=== PATIENT | female | born 1940 | race Caucasian/White ===

== ENCOUNTER → 2018-06-08 10:13 | Outpatient (CLI) | payer OTHER, SELFPAY ==
[2018-06-08 10:44] LABS: Hemoglobin A1C% w Est Avg Glu 8.1 % (4.0-6.0)
[2018-06-08 10:59] LABS: Add Manual Diff / Slide Review NO; Basophils Percent Auto 0.9 % (0-2); Eosinophils Percent Auto 1.5 % (2-4); Hematocrit 36.6 % (36-46); Hemoglobin 12.4 g/dL (12.0-16.0); Lymphocytes Percent Auto 41.6 % (25-40); Mean Corpuscular Hemoglobin 29.4 PG (26-34); Mean Corpuscular Volume 86.4 fL (80-100); Monocytes Percent Auto 7.3 % (3-14); Neutrophils Absolute Auto 4000 /uL (3000-5900); Neutrophils Percent Auto 48.7 % (50-75); Platelet Count 325 X10^3/uL (150-400); Red Blood Cell Count 4.23 X10^6/uL (4.0-5.2); Red Cell Distribution Width 13.8 % (11.6-14.8); White Blood Cell Count 8.2 X10^3/uL (4.5-11.0)
[2018-06-08 11:17] LABS: Alanine Aminotransferase 21 IU/L (9-52); Albumin 4.4 g/dL (3.5-5.0); Albumin Globulin Ratio 1.6 (1.0-2.8); Alkaline Phosphatase 43 U/L (38-126); Aspartate Aminotransferase 25 IU/L (14-36); Bilirubin Total 0.9 mg/dL (0.2-1.3); Blood Urea Nitrogen 17 mg/dL (7-17); Calcium 9.9 mg/dL (8.4-10.2); Carbon Dioxide 30 mmol/L (22-32); Chloride 102 mmol/L (98-107); Estimated Glomerular Filt Rate 53.5 mL/min (>60); Globulin 2.8 g/dL (1.7-4.1); Glucose 160 mg/dL (80-110); HEMOLYSIS < 15 (0-50); Potassium 4.5 mmol/L (3.4-5.1); Sodium 142 mmol/L (137-145); Total Protein 7.2 g/dL (6.3-8.2)
== END ==
PROVIDERS: PCP Internal Medicine; Visit Provider Internal Medicine
DX: E11.9 Type 2 diabetes mellitus without complications (principal); D63.8 Anemia in other chronic diseases classified elsewhere
CPT/HCPCS: 36415; 80053; 83036; 85025

== ENCOUNTER → 2018-09-08 08:04 | Outpatient (CLI) | payer OTHER, SELFPAY ==
[2018-09-08 08:43] LABS: Add Manual Diff / Slide Review NO; Eosinophils Percent Auto 1.3 % (2-4); Hematocrit 35.7 % (36-46); Hemoglobin 12.3 g/dL (12.0-16.0); Lymphocytes Percent Auto 56.2 % (25-40); Mean Corpuscular HGB Conc 34.5 % (30-36); Mean Corpuscular Hemoglobin 29.4 PG (26-34); Mean Corpuscular Volume 85.2 fL (80-100); Monocytes Percent Auto 5.9 % (3-14); Neutrophils Absolute Auto 2900 /uL (3000-5900); Neutrophils Percent Auto 35.6 % (50-75); Platelet Count 354 X10^3/uL (150-400); Red Blood Cell Count 4.19 X10^6/uL (4.0-5.2); Red Cell Distribution Width 13.8 % (11.6-14.8); White Blood Cell Count 8.2 X10^3/uL (4.5-11.0)
[2018-09-08 08:53] LABS: BUN Creatinine Ratio 15.7 (6-22); Blood Urea Nitrogen 11 mg/dL (7-17); Calcium 9.5 mg/dL (8.4-10.2); Carbon Dioxide 26 mmol/L (22-32); Chloride 103 mmol/L (98-107); Estimated Glomerular Filt Rate > 60.0 mL/min (>60); Glucose 135 mg/dL (80-110); HEMOLYSIS < 15 (0-50); Potassium 3.2 mmol/L (3.4-5.1); Sodium 144 mmol/L (137-145)
[2018-09-08 09:01] LABS: HEMOLYSIS < 15 (0-50); Iron 61 ug/dL (37-170)
[2018-09-08 09:02] LABS: Hemoglobin A1C% w Est Avg Glu 8.4 % (4.0-6.0)
[2018-09-08 09:13] LABS: Percent Iron Saturation 21 % (15-50); Total Iron Binding Capacity 295 ug/dL (265-497); Transferrin 243 mg/dL (206-381)
== END ==
PROVIDERS: PCP Internal Medicine; Visit Provider Internal Medicine
DX: E11.9 Type 2 diabetes mellitus without complications (principal); D63.8 Anemia in other chronic diseases classified elsewhere
CPT/HCPCS: 36415; 80048; 82728; 83036; 83540; 83550; 85025

== ENCOUNTER → 2018-09-17 09:02 | Outpatient (CLI) | payer OTHER, SELFPAY ==
--- NOTE | 2018-09-17 09:04 | DI.MG.S_ITS ---
BILATERAL DIGITAL SCREENING MAMMOGRAM 3D/2D WITH CAD: 09/17/2018 CLINICAL: Routine screening. Comparison is made to exams dated: 08/03/2016 mammogram, 10/31/2013 mammogram, and 10/18/2012 mammogram - [facility]. There are scattered fibroglandular elements in both breasts. Current study was also evaluated with a Computer Aided Detection (CAD) system. There is a mole marker on both breasts. No significant masses, calcifications, or other findings are seen in either breast. There has been no significant interval change. IMPRESSION: NEGATIVE There is no mammographic evidence of malignancy. A 1 year screening mammogram is recommended. This exam was interpreted at Station ID: [id number]. NOTE: For mammograms, a report in lay terms will be sent to the patient. Approximately 15% of breast malignancies will not be visualized mammographically. In the management of a palpable breast mass, a negative mammogram must not discourage biopsy of a clinically suspicious lesion. Electronically Signed By: Reyes ross/jonas:09/19/2018 17:48:31 letter sent: Normal Exam ACR BI-RADS Category 1: Negative [id number]
== END ==
PROVIDERS: PCP Internal Medicine; Visit Provider Internal Medicine
DX: Z12.31 Encounter for screening mammogram for malignant neoplasm of breast (principal)
CPT/HCPCS: 77063; 77067

== ENCOUNTER → 2019-10-30 07:41 | Outpatient (CLI) | payer MEDICARE, SELFPAY ==
[2019-10-30 08:39] LABS: BUN Creatinine Ratio 13.6 (6-22); Blood Urea Nitrogen 19 mg/dL (7-17); Calcium 10.3 mg/dL (8.4-10.2); Carbon Dioxide 25 mmol/L (22-32); Chloride 105 mmol/L (98-107); Cholesterol 190 mg/dL (140-199); Estimated Glomerular Filt Rate 36.1 mL/min (>60); Glucose 78 mg/dL (80-110); HDL Cholesterol 59 mg/dL (40-60); HEMOLYSIS < 15 (0-50); LDL Cholesterol Calculated 98 mg/dL (<100); Potassium 3.6 mmol/L (3.4-5.1); Sodium 140 mmol/L (137-145); Triglycerides 166 mg/dL (35-150)
== END ==
PROVIDERS: PCP Internal Medicine; Referring Provider Internal Medicine; Visit Provider Internal Medicine
DX: E11.9 Type 2 diabetes mellitus without complications (principal)
CPT/HCPCS: 36415; 80048; 80061

== ENCOUNTER → 2020-02-14 09:00 | Outpatient (CLI) | payer MEDICARE, SELFPAY ==
[2020-02-14 10:22] LABS: Add Manual Diff / Slide Review NO; Basophils Absolute Auto 100 /uL (0-100); Eosinophils Absolute Auto 200 /uL (0-450); Eosinophils Percent Auto 2.8 % (2-4); Hematocrit 33.8 % (36-46); Hemoglobin 11.7 g/dL (12.0-16.0); Lymphocytes Absolute Auto 3300 /uL (1100-4500); Lymphocytes Percent Auto 45.6 % (25-40); Mean Corpuscular HGB Conc 34.7 % (30-36); Mean Corpuscular Hemoglobin 30.4 PG (26-34); Mean Corpuscular Volume 87.6 fL (80-100); Monocytes Absolute Auto 500 /uL (0-900); Monocytes Percent Auto 7.2 % (3-14); Neutrophils Absolute Auto 3200 /uL (1500-7000); Neutrophils Percent Auto 43.4 % (50-75); Platelet Count 327 X10^3/uL (150-400); Red Blood Cell Count 3.85 X10^6/uL (4.0-5.2); Red Cell Distribution Width 13.6 % (11.6-14.8); White Blood Cell Count 7.3 X10^3/uL (4.5-11.0)
[2020-02-14 10:35] LABS: BUN Creatinine Ratio 18.8 (6-22); Blood Urea Nitrogen 24 mg/dL (7-17); Calcium 10.1 mg/dL (8.4-10.2); Carbon Dioxide 27 mmol/L (22-32); Chloride 106 mmol/L (98-107); Glucose 127 mg/dL (80-110); HEMOLYSIS < 15 (0-50); Potassium 3.8 mmol/L (3.4-5.1); Sodium 141 mmol/L (137-145)
[2020-02-15 09:56] LABS: SARS CoV19 IgG Negative (Negative)
== END ==
PROVIDERS: PCP Internal Medicine; Referring Provider Internal Medicine; Visit Provider Internal Medicine
DX: Z03.818 Encounter for observation for suspected exposure to other biological agents ruled out (principal); D63.8 Anemia in other chronic diseases classified elsewhere; E11.40 Type 2 diabetes mellitus with diabetic neuropathy, unspecified
CPT/HCPCS: 36415; 80048; 83036; 85025; 86769

== ENCOUNTER → 2020-06-05 14:09 | Outpatient (CLI) | payer MEDICARE, SELFPAY ==
[2020-06-05 14:52] LABS: Add Manual Diff / Slide Review NO; Basophils Absolute Auto 100 /uL (0-100); Basophils Percent Auto 0.9 % (0-2); Eosinophils Absolute Auto 100 /uL (0-450); Eosinophils Percent Auto 1.5 % (2-4); Hematocrit 37.1 % (36-46); Hemoglobin 12.6 g/dL (12.0-16.0); Lymphocytes Absolute Auto 3400 /uL (1100-4500); Lymphocytes Percent Auto 39.6 % (25-40); Mean Corpuscular HGB Conc 33.8 % (30-36); Mean Corpuscular Hemoglobin 29.1 PG (26-34); Monocytes Absolute Auto 600 /uL (0-900); Monocytes Percent Auto 7.3 % (3-14); Neutrophils Absolute Auto 4400 /uL (1500-7000); Neutrophils Percent Auto 50.7 % (50-75); Platelet Count 293 X10^3/uL (150-400); Red Blood Cell Count 4.31 X10^6/uL (4.0-5.2); Red Cell Distribution Width 13.5 % (11.6-14.8); White Blood Cell Count 8.6 X10^3/uL (4.5-11.0)
[2020-06-05 15:11] LABS: BUN Creatinine Ratio 20.6 (6-22); Blood Urea Nitrogen 21 mg/dL (7-17); Calcium 10.2 mg/dL (8.4-10.2); Carbon Dioxide 24 mmol/L (22-32); Chloride 102 mmol/L (98-107); Glucose 215 mg/dL (80-110); HEMOLYSIS 16 (0-50); Potassium 4.1 mmol/L (3.4-5.1); Sodium 136 mmol/L (137-145)
[2020-06-05 15:17] LABS: Hemoglobin A1C% w Est Avg Glu 6.6 % (4.0-6.0)
== END ==
PROVIDERS: PCP Internal Medicine; Referring Provider Internal Medicine; Visit Provider Internal Medicine
DX: D50.9 Iron deficiency anemia, unspecified (principal); D63.8 Anemia in other chronic diseases classified elsewhere; E78.00 Pure hypercholesterolemia, unspecified; E11.9 Type 2 diabetes mellitus without complications
CPT/HCPCS: 36415; 80048; 83036; 85025

== ENCOUNTER → 2020-12-02 13:42 | Outpatient (CLI) | payer OTHER, SELFPAY | PROVIDERS: PCP Internal Medicine; Referring Provider Internal Medicine; Visit Provider Internal Medicine | DX: M81.0 Age-related osteoporosis without current pathological fracture (principal); Z78.0 Asymptomatic menopausal state; E11.9 Type 2 diabetes mellitus without complications | CPT/HCPCS: 77080 ==

== ENCOUNTER → 2020-12-17 15:49 | Outpatient (CLI) | payer MEDICARE, SELFPAY ==
[2020-12-17] MEDS: COVID-19 VACC #1, MRNA(MOD) 100 MCG/0.5 ML VIAL IM (16:01)
== END ==
PROVIDERS: PCP Internal Medicine; Visit Provider Internal Medicine
DX: Z23 Encounter for immunization (principal)
CPT/HCPCS: 0011A; 91301

== ENCOUNTER → 2021-01-15 08:02 | Outpatient (CLI) | payer MEDICARE, SELFPAY ==
[2021-01-15] MEDS: COVID-19 VACC #2, MRNA(MOD) 100 MCG/0.5 ML VIAL IM (08:13)
== END ==
PROVIDERS: PCP Internal Medicine; Visit Provider Internal Medicine
DX: Z23 Encounter for immunization (principal)
CPT/HCPCS: 0012A; 91301

== ENCOUNTER → 2021-05-30 08:28 | Outpatient (CLI) | payer OTHER, SELFPAY ==
[2021-05-30 09:49] LABS: Add Manual Diff / Slide Review NO; Basophils Absolute Auto 100 /uL (0-100); Eosinophils Absolute Auto 200 /uL (0-450); Eosinophils Percent Auto 2.3 % (2-4); Hematocrit 35.2 % (36-46); Hemoglobin 11.9 g/dL (12.0-16.0); Lymphocytes Absolute Auto 3700 /uL (1100-4500); Lymphocytes Percent Auto 47.7 % (25-40); Mean Corpuscular HGB Conc 33.8 % (30-36); Mean Corpuscular Hemoglobin 29.7 PG (26-34); Mean Corpuscular Volume 87.8 fL (80-100); Monocytes Absolute Auto 600 /uL (0-900); Monocytes Percent Auto 8.2 % (3-14); Neutrophils Absolute Auto 3200 /uL (1500-7000); Neutrophils Percent Auto 40.8 % (50-75); Platelet Count 312 X10^3/uL (150-400); Red Blood Cell Count 4.01 X10^6/uL (4.0-5.2); Red Cell Distribution Width 13.4 % (11.6-14.8); White Blood Cell Count 7.8 X10^3/uL (4.5-11.0)
[2021-05-30 09:55] LABS: Alanine Aminotransferase 14 IU/L (<35); Albumin 4.3 g/dL (3.5-5.0); Albumin Globulin Ratio 1.8 (1.0-2.8); Alkaline Phosphatase 62 U/L (38-126); Aspartate Aminotransferase 26 IU/L (14-36); BUN Creatinine Ratio 17.4 (6-22); Bilirubin Total 0.8 mg/dL (0.2-1.3); Blood Urea Nitrogen 19 mg/dL (7-17); Calcium 9.9 mg/dL (8.4-10.2); Carbon Dioxide 28 mmol/L (22-32); Chloride 102 mmol/L (98-107); Cholesterol 187 mg/dL (140-199); Estimated Glomerular Filt Rate 48.1 mL/min (>60); Globulin 2.4 g/dL (1.7-4.1); Glucose 144 mg/dL (80-110); HDL Cholesterol 67 mg/dL (40-60); HEMOLYSIS < 15 (0-50); LDL Cholesterol Calculated 89 mg/dL (<100); Potassium 3.9 mmol/L (3.4-5.1); Sodium 138 mmol/L (137-145); Total Protein 6.7 g/dL (6.3-8.2); Triglycerides 153 mg/dL (35-150)
[2021-05-30 20:16] LABS: Hemoglobin A1C% w Est Avg Glu 6.7 % (4.0-6.0)
== END ==
PROVIDERS: PCP Internal Medicine; Referring Provider Internal Medicine; Visit Provider Internal Medicine
DX: E11.40 Type 2 diabetes mellitus with diabetic neuropathy, unspecified (principal); D63.8 Anemia in other chronic diseases classified elsewhere; E78.2 Mixed hyperlipidemia
CPT/HCPCS: 36415; 80053; 80061; 83036; 85025

== ENCOUNTER 2023-03-24 09:16 | Emergency (ER) | payer MEDICARE, SELFPAY ==
[2023-03-24] VITALS (20 sets, daily range): BP systolic 127–152; BP diastolic 65–82; PULSE 68–111; RESP 13–23; TEMP 36.4; O2SAT 97–100; BMI 23.3
--- NOTE | 2023-03-24 09:23 | DI.RAD.S_ITS ---
PROCEDURE: XR CHEST 1V INDICATIONS: chest pain TECHNIQUE: One view of the chest was acquired. COMPARISON: [facility], CHEST FOR PICC PLACEMENT, 03/21/2016, 14:41. [facility], CHEST 1 VIEW, 03/21/2016, 9:05. FINDINGS: Surgical changes and devices: None. Lungs and pleura: Lungs are clear. No pleural effusions or pneumothorax. Mediastinum: Mediastinal contours appear normal. Heart size is normal. Bones and chest wall: No suspicious bony lesions. Overlying soft tissues appear unremarkable. IMPRESSION: No acute cardiopulmonary process. Dictated by: Zoltan Moise M.D. on 03/24/2023 at 9:55 Approved by: Zoltan Moise M.D. on 03/24/2023 at 9:56
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
[2023-03-24] MEDS: ASPIRIN 81 MG CHEW TAB 324 MG PO (09:40)
[2023-03-24 09:49] LABS: INR 1.1 (0.9-1.3); Prothrombin Time 12.2 SECONDS (10.1-12.7)
[2023-03-24 09:52] LABS: PTT Partial Thromboplastin Tim 28 SECONDS (26-36)
[2023-03-24 09:55] LABS: Add Manual Diff / Slide Review NO; Basophils Absolute Auto 100 /uL (0-100); Basophils Percent Auto 0.9 % (0-2); Eosinophils Absolute Auto 100 /uL (0-450); Eosinophils Percent Auto 1.1 % (2-4); Hematocrit 36.8 % (36-46); Hemoglobin 12.5 g/dL (12.0-16.0); Lymphocytes Absolute Auto 3800 /uL (1100-4500); Lymphocytes Percent Auto 38.4 % (25-40); Mean Corpuscular HGB Conc 33.9 % (30-36); Mean Corpuscular Hemoglobin 29.3 PG (26-34); Mean Corpuscular Volume 86.3 fL (80-100); Monocytes Absolute Auto 700 /uL (0-900); Monocytes Percent Auto 7.5 % (3-14); Neutrophils Absolute Auto 5100 /uL (1500-7000); Neutrophils Percent Auto 52.1 % (50-75); Platelet Count 326 X10^3/uL (150-400); Red Blood Cell Count 4.27 X10^6/uL (4.0-5.2); Red Cell Distribution Width 13.9 % (11.6-14.8); White Blood Cell Count 9.8 X10^3/uL (4.5-11.0)
[2023-03-24 10:01] LABS: Alanine Aminotransferase 17 IU/L (<35); Albumin 4.3 g/dL (3.5-5.0); Albumin Globulin Ratio 1.4 (1.0-2.8); Alkaline Phosphatase 58 U/L (38-126); Aspartate Aminotransferase 24 IU/L (14-36); BUN Creatinine Ratio 19.8 (6-22); Bilirubin Total 1.3 mg/dL (0.2-1.3); Blood Urea Nitrogen 24 mg/dL (7-17); Calcium 9.9 mg/dL (8.4-10.2); Carbon Dioxide 25 mmol/L (22-32); Chloride 101 mmol/L (98-107); Creatine Kinase 47 U/L (30-135); Estimated Glomerular Filt Rate 44 mL/min (>60); Globulin 3.1 g/dL (1.7-4.1); Glucose 141 mg/dL (80-110); HEMOLYSIS < 15 (0-50); Lipase 61 U/L (23-300); Magnesium 1.5 mg/dL (1.6-2.3); Potassium 4.1 mmol/L (3.4-5.1); Sodium 136 mmol/L (137-145); Total Protein 7.4 g/dL (6.3-8.2)
[2023-03-24 10:24] LABS: Troponin I 0.197 ng/mL (0.01-0.034)
[2023-03-24] MEDS: HEPARIN DRIP 25,000 UNIT/500 ML IV.SOLN 15.241 UNIT IV (10:51)
[2023-03-24] MEDS: HEPARIN 5,000 UNIT/ML VIAL 4000 UNIT IV (10:52)
[2023-03-24 12:07] LABS: COVID19 -Nasal RAPID Negative (Negative)
[2023-03-24 13:03] LABS: Creatine Kinase 52 U/L (30-135)
[2023-03-24 13:20] LABS: Troponin I 0.317 ng/mL (0.01-0.034)
--- NOTE | 2023-03-24 13:27 | PC.NURSE ---
Patient left this ED with [place] ambulance crew on stretcher. This RN gave report to TAWNY Cabral from [facility]. This RN gave report to TAWNY Velasquez at [facility]. Patient gave son Leno Montano her purse to go with him. MALATHI paperwork and patient medical record sent with [place] ambulance crew to give to [facility]. Both parties given this ED phone number for any concerns.
== END 2023-03-24 13:27 | disposition short-term general hospital (02) ==
PROVIDERS: Emergency Provider Emergency Medicine; PCP Internal Medicine
DX: I21.4 Non-ST elevation (NSTEMI) myocardial infarction (principal); Z20.822 Contact with and (suspected) exposure to COVID-19
CPT/HCPCS: 36415; 71045; 80053; 82550; 83690; 83735; 84484; 85025; 85610; 85730; 87635; 93005; 93010; 96365; 96366; 96375; 99285; C9803; J1644

== ENCOUNTER 2024-12-30 11:29 | Emergency (ER) | payer MEDICARE, SELFPAY ==
[2024-12-30 11:34] VITALS: BP 138/63; PULSE 88; RESP 16; TEMP 36.4; O2SAT 96; BMI 22.4
--- NOTE | 2024-12-30 11:42 | DI.RAD.S_ITS ---
PROCEDURE: XR HAND LT 2V INDICATIONS: fall TECHNIQUE: 3 views of the hand(s) acquired. COMPARISON: None. FINDINGS: Bones: No fractures or dislocations. Carpal bones are normally aligned. No suspicious bony lesions. Soft tissues: No suspicious soft tissue calcifications. IMPRESSION: Osteopenia without fracture Approved by: Yasmani Jorge M.D. on 12/30/2024 at 12:16
--- NOTE | 2024-12-30 11:42 | DI.RAD.S_ITS ---
PROCEDURE: XR FOREARM LT 2V INDICATIONS: fall TECHNIQUE: 2 views of the forearm were acquired. COMPARISON: None. FINDINGS: Bones: No fractures or dislocations. No suspicious bony lesions. Soft tissues: No suspicious soft tissue calcifications or masses. IMPRESSION: Osteopenia without fracture Approved by: Yasmani Jorge M.D. on 12/30/2024 at 12:17
--- NOTE | 2024-12-30 11:54 | ED.FALL ---
HPI - Fall General Chief Complaint: Fall Stated Complaint: Fell hurt both arms Time Seen by Provider: 12/30/24 11:54 Source: patient Mode of arrival: Ambulatory History of Present Illness HPI Narrative: This is an 84-year-old woman with a history of diabetes presenting with concern for arm pain on the left in her hand and wrist that radiates up towards her elbow. Patient states that she had a fall today when she was on carpeted floor and accidentally tripped over the front of her shoe falling forward landing with her arms outstretched and then hitting her face/head causing some abrasions on her nose and forehead. Patient endorses pain in her hand particularly above the pinky also some pain in her forearm. She notes a little bit of discomfort in her right elbow but states ?it is nothing I do not think it needs any imaging. Patient is adamant that she does not want to have imaging done of her head or neck. She also states that she has not taken anything for pain and she does not want anything for pain but she does state she is in a lot of pain. She states she did not lose consciousness. Patient does acknowledge that she was sick in the last couple of weeks she believes possibly with the flu, her son works in the school system and he got sick with something he got from kids at school and she believes she got the same thing. She says she has had a persistent cough that has been improving and she denies fevers chills weakness fatigue body aches or other symptoms. She is using a diabetic safe cough medicine. She denies headache vision change, prodrome of syncope or heart rate change prior to her fall or other symptoms. Related Data Home Medications Medication Instructions Recorded Confirmed calcium polycarbophil 625 mg 1 tab PO QDAYP ##0 08/05/16 tablet (FiberCon) Allergies Allergy/AdvReac Type Severity Reaction Status Date / Time Penicillins [PENICILLINS] Allergy Severe THROAT Verified 12/30/24 11:34 CLOSES UP erythromycin base AdvReac Severe EXTREME Verified 12/30/24 11:34 [ERYTHROMYCIN BASE] STOMACH PROBLEMS, NAUSEA, VOMITING hydrocodone [HYDROCODONE] AdvReac Severe NIGHTMARES, Verified 12/30/24 11:34 HALLUCINATIONS Review of Systems Review of Systems Narrative: See HPI Patient History Social History Smoking Status: Never smoker Smoking Status: Never smoker alcohol intake frequency: holidays/special occasions only Exam Narrative Exam Narrative: GENERAL: 84 year old patient appears stated age. Well-developed patient, in mild distress. HEAD: Superficial abrasions consistent with carpeted floor on patient's mid forehead between the eyebrows and bridge of the nose. Facial bones are nontender. Bite is normal. Otherwise Atraumatic. Normocephalic. EYES: Pupils equal round and reactive. Extraocular motions intact. No scleral icterus. No injection or drainage. ENT: Nose without bleeding, purulent drainage. Airway patent. NECK: Trachea midline. Non tender CARDIOVASCULAR: Regular rate and rhythm without murmurs, gallops, or rubs. RESPIRATORY: Clear to auscultation. Breath sounds equal bilaterally. There is an occasional cough. No wheezes, rales, or rhonchi. EXTREMITIES: There is no appreciable swelling of the patient's right elbow or left hand wrist or forearm. She does have very subtle bruising to the medial aspect of the left hand and left pinky. Range of motion and strength are intact with flexion extension supination pronation and strength of the fingers is intact. Bones of the wrist and proximal hand are nontender with the exception of slight tenderness over the distal radius on the left. No tenderness of the proximal forearm or elbow or humerus. Range of motion is intact at the shoulder and elbow. Patient has no tenderness swelling of the right elbow at her reported area of mild pain. Range of motion is intact and pain-free. She does have increased pain with flexion and extension of the 5th digit. No edema or joint tenderness. BACK: There is no C-spine tenderness step-off or deformity noted. Back is Nontender without deformity or crepitance. No flank tenderness. NEURO: AOx3. SKIN: No rash or erythema of visible areas Initial Vital Signs Initial Vital Signs: Vital Signs Temperature 97.5 F L 12/30/24 11:34 Pulse Rate 88 12/30/24 11:34 Respiratory Rate 16 12/30/24 11:34 Blood Pressure 138/63 12/30/24 11:34 Pulse Oximetry 96 12/30/24 11:34 Oxygen Delivery Method Room Air 12/30/24 11:34 Course Orders Ordered: ED Orders 12/30/24 11:42 XR forearm LT 2V Stat XR hand LT 2V Stat Vital Signs Vital signs: Vital Signs - 8 hr 12/30/24 11:34 12/30/24 13:42 Temperature 97.5 F L Pulse Rate 88 85 Respiratory Rate 16 16 Blood Pressure 138/63 135/62 Pulse Oximetry 96 97 Oxygen Delivery Method Room Air Room Air MDM - Fall Differential Diagnosis Differential diagnosis: Likely other (sprain, strain, fall from standing) Imaging Data Extremity x-ray #1: My Impression: Agree with Radiology interpretation Radiologist's Impression: [address] [address] XRay Report Signed Patient: Kerry Montano MR#: [id number] : 1940 Acct:[id number] Age/Sex: 84 / F Date of Service: 12/30/24 Loc: ED Accession Number: [id number] Procedure: XR hand LT 2V Ordering Provider: Stanley Burnett D.O. PROCEDURE: XR HAND LT 2V INDICATIONS: fall TECHNIQUE: 3 views of the hand(s) acquired. COMPARISON: None. FINDINGS: Bones: No fractures or dislocations. Carpal bones are normally aligned. No suspicious bony lesions. Soft tissues: No suspicious soft tissue calcifications. IMPRESSION: Osteopenia without fracture Approved by: Yasmani Jorge M.D. on 12/30/2024 at 12:16 Extremity x-ray #2: My Impression: Agree with Radiology interpretation Radiologist's Impression: [address] [address] XRay Report Signed Patient: Kerry Montano MR#: [id number] : 1940 Acct:[id number] Age/Sex: 84 / F Date of Service: 12/30/24 Loc: ED Accession Number: [id number] Procedure: XR forearm LT 2V Ordering Provider: Stanley Burnett D.O. PROCEDURE: XR FOREARM LT 2V INDICATIONS: fall TECHNIQUE: 2 views of the forearm were acquired. COMPARISON: None. FINDINGS: Bones: No fractures or dislocations. No suspicious bony lesions. Soft tissues: No suspicious soft tissue calcifications or masses. IMPRESSION: Osteopenia without fracture Approved by: Yasmani Jorge M.D. on 12/30/2024 at 12:17 MDM Narrative Medical decision making narrative: 84-year-old woman with a history of diabetes who is generally well-appearing; presenting with concern for left hand and wrist pain/forearm pain after she fell at home landing on carpet. Exam is not suspicious for fracture. X-rays of the hand and forearm returned negative. Patient denies any prodrome prior to the fall, mechanically tripping over the front of her shoe. She does endorse recent cough possible flu largely resolved and has an occasional cough still. We discussed possibly obtaining an x-ray of her chest however she declines this. She also adamantly refuses to have a CT scan of her head and neck. Explained in detail that given her age she has increased risk factor for bleeding in the brain when she hits her head, she is not on thinners. She understands the risks of not having this CT evaluation done today. We did discuss symptoms to watch out for that could possibly indicate brain bleed. She endorsed a fair amount of pain in the left hand and wrist and declined any Tylenol or medication in the emergency department. She was encouraged to consider taking these at home for symptom control. A splint and sling was ordered as she likely has a mild sprain however she also declined the splint and sling from the ER. She was advised to follow up with her PCP. Return precautions provided, follow-up plan discussed, all questions answered. Discharge Plan Departure Patient Disposition: Home Clinical Impression: Fall on same level Qualifiers: Encounter type: initial encounter Qualified Code(s): W18.30XA - Fall on same level, unspecified, initial encounter Left wrist sprain Qualifiers: Encounter type: initial encounter Qualified Code(s): S63.502A - Unspecified sprain of left wrist, initial encounter Sprain of hand, left Qualifiers: Encounter type: initial encounter Qualified Code(s): S63.92XA - Sprain of unspecified part of left wrist and hand, initial encounter Activity Restrictions/Additional Instructions: *You have been diagnosed with [fall, wrist sprain and strain] *What to do: *Please continue to take your regular medications as directed. [ ] New medication prescriptions sent to your pharmacy: [ ] [ ] New medication written as a paper prescription [X ] No new medications given *Please follow up with your primary care provider in 2-3 days, call for an appointment. Let them know you were seen in the Emergency Department and that we ask that you be seen in follow up. We will electronically transmit a record of today's note if your PCP is in our system. We took x-rays of your forearm and hand today. There is no evidence of a new fracture although you do have some osteopenia (your bone density is low). I suspect based on your exam that you have a mild sprain/strain we placed you in a splint and sling. We did also discussed getting a CT scan of your head as you hit your head today as well. But you declined this. Please note if you have any symptoms developing over the next few days even up to the next 2 weeks or so such as dizziness severe headache vision change difficulty ambulating or other neurologic symptoms of concern it is very important that you seek re-evaluation as you did not have imaging done of your head today. Regarding your arm and hand discomfort. This will likely feel better with elevation, the sling will help but you can also keep it up on a pillow when you are at rest in bed or seated. You can follow up with your primary care provider if needed but I am hopeful that your symptoms of pain will start to improve soon. I strongly recommend you try Tylenol to help with the pain as well. *If you do not have a primary care provider please contact the [facility] Resource line at [phone]. They will ask some questions about your medical history and help get you set up with a doctor in the community. *Return to Emergency Department if you should have any new, worsening or concerning symptoms, such as [fever greater than 101 F, shaking chills, worsening pain, persistent vomiting or other bothersome symptoms] Prescriptions: No Action calcium polycarbophil [FiberCon] 625 MG tablet 1 tab PO QDAYP Qty: 0 Referrals: Ronaldo South MD [Primary Care Provider] - Stand Alone Forms: Patient Portal/API/Survey
[2024-12-30 13:42] VITALS: BP 135/62; PULSE 85; RESP 16; O2SAT 97
== END 2024-12-30 13:43 | disposition home or self-care (01) ==
PROVIDERS: Emergency Provider Student in an Organized Health Care Education/Training Program; PCP Internal Medicine
DX: S63.92XA Sprain of unspecified part of left wrist and hand, initial encounter (principal); S63.502A Unspecified sprain of left wrist, initial encounter; S09.90XA Unspecified injury of head, initial encounter; S00.31XA Abrasion of nose, initial encounter; S00.81XA Abrasion of other part of head, initial encounter; W01.0XXA Fall on same level from slipping, tripping and stumbling without subsequent striking against object, initial encounter
CPT/HCPCS: 73090; 73120; 99281; 99283

== ENCOUNTER → 2025-07-23 07:59 | Outpatient (CLI) | payer MEDICARE, SELFPAY ==
--- NOTE | 2025-07-23 09:00 | DI.RAD.S_ITS ---
PROCEDURE: XR LUMBAR SPINE 2-3V INDICATIONS: LOW BACK PAIN TECHNIQUE: 3 views of the lumbar spine were acquired. COMPARISON: None. FINDINGS: Bones: 5 [id number] vertebrae are present. Trace levoscoliosis has its apex about the L2-L3 interspace. There is otherwise normal bony alignment. Severe L2-L3 and L5-S1 disc height loss with adjacent endplate sclerosis and anterior osteophytosis. No vertebral body compression fractures. No suspicious bony lesions. Soft tissues: Overlying bowel gas pattern is normal. No suspicious soft tissue calcifications. Atherosclerotic vascular calcifications. 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 Dictated by: Angel Bacon M.D. on 07/27/2025 at 6:54 Approved by: Angel Bacon M.D. on 07/27/2025 at 6:55
== END ==
LOC: RAD 08:02
PROVIDERS: PCP Physician Assistant; Referring Provider Physician Assistant; Visit Provider Physician Assistant
DX: M47.816 Spondylosis without myelopathy or radiculopathy, lumbar region (principal); M54.50 Low back pain, unspecified
CPT/HCPCS: 72100